=== PATIENT | female | born 1995 | race Caucasian/White ===

== ENCOUNTER 2021-06-02 03:10 | Emergency (ER) | payer OTHER ==
[~2021-06-02] VITALS: Ht 172.7 cm; Wt 61.7 kg
--- NOTE | 2021-06-02 03:10 | NUR ---
PT BIB [facility], PREBOOK. TAKEN TO CHAIR
[2021-06-02 03:15] VITALS: BP 120/72
[2021-06-02 03:17] VITALS: BP 120/72
--- NOTE | 2021-06-02 03:17 | NUR ---
PATIENT BIB [facility] POLICE DEPT. PATIENT EXAMINED BY DR. SWARTZ. PATIENT MEDICALLY CLEARED AND RELEASED IN CUSTODY IN STABLE CONDITION. ORIGINAL PRE-BOOK FORM GIVEN TO OFFICER [employer]ANT[employer].
== END 2021-06-02 03:17 ==
LOC: MED 03:10
DX: Z02.89 Encounter for other administrative examinations (principal)
CPT/HCPCS: 99283